=== PATIENT | female | born 1995 | race Hispanic/Latino ===

== ENCOUNTER 2018-10-26 14:59 | Observation (INO) | payer MEDICAID, OTHER ==
[~2018-10-26] VITALS: Ht 152.4 cm; Wt 73.9 kg
[2018-10-26 15:36] LABS: APPEARANCE,URINE CLOUDY (CLEAR); BILIRUBIN,URINE NEGATIVE (NEGATIVE); COLOR,URINE RED (YELLOW); GLUCOSE, URINE (UA) NEGATIVE (NEGATIVE); KETONES,URINE NEGATIVE (NEGATIVE); LEUKOCYTE ESTERASE ,URINE MODERATE (NEGATIVE); NITRATE,URINE NEGATIVE (NEGATIVE); OCCULT BLOOD,URINE LARGE (NEGATIVE); PH,URINE 5.5 (5.0-8.0); PROTEIN,URINE 30 mg/dL (NEGATIVE); UROBILINOGEN,URINE 0.2 mg/dL (0.2-1.0)
[2018-10-26 15:43] LABS: HCG,QUAL RESULT POSITIVE (NEGATIVE)
[2018-10-26 15:57] LABS: BACTERIA,URINE Few /HPF (None Seen); RBC,URINE Full Field /HPF (0-1)
[2018-10-26 16:10] LABS: BASOPHILS % (AUTO) 0.7 % (0.0-5.0); EOSINOPHILS % (AUTO) 5.4 % (0.0-8.0); HEMATOCRIT 35.1 % (36-48); LYMPHOCYTES % (AUTO) 26.7 % (21.0-51.0); MEAN CORPUSCULAR HGB CONC 33.9 g/dL (32.0-36.0); MEAN CORPUSCULAR VOLUME 85.6 fL (79-99); MONOCYTES % (AUTO) 5.3 % (3.0-13.0); NEUTROPHILS % (AUTO) 61.9 % (40.0-77.0); PLATELET COUNT (AUTO) 249 K/uL (130-400); RED CELL DISTRIBUTION WIDTH 15.1 % (11.0-15.5); WHITE BLOOD COUNT (AUTO) 10.9 K/uL (4.8-10.8)
[2018-10-26 16:20] LABS: CREATININE 0.5 mg/dL (0.5-1.5); POTASSIUM 3.5 mmol/L (3.5-5.1)
[2018-10-26] MEDS ORDERED: ONDANSETRON HCL 4 MG/2 ML VIAL IVP PRN (18:15)
[2018-10-26 19:45] VITALS: BP 121/70
[2018-10-26] MEDS: DEXTROSE 5%-LACTATED RINGERS 1,000 ML IV SCH (21:40)
[2018-10-26] MEDS: ACETAMINOPHEN EXTRA STRENGTH 500 MG TABLET PO PRN (22:36)
[2018-10-26 23:50] VITALS: BP 105/64
[2018-10-27 03:50] VITALS: BP 96/57
[2018-10-27] MEDS: DEXTROSE 5%-LACTATED RINGERS 1,000 ML IV SCH ×3 (04:51→23:18)
[2018-10-27 08:45] VITALS: BP 112/60
[2018-10-27 11:39] VITALS: BP 120/60
[2018-10-27] MEDS: ACETAMINOPHEN EXTRA STRENGTH 500 MG TABLET PO PRN (13:25)
[2018-10-27 16:14] VITALS: BP 93/63
[2018-10-27 19:23] VITALS: BP 102/62
[2018-10-27 23:12] VITALS: BP 93/58
[2018-10-28 04:06] VITALS: BP 101/59
[2018-10-28] MEDS: DEXTROSE 5%-LACTATED RINGERS 1,000 ML IV SCH (06:27)
[2018-10-28 07:42] VITALS: BP 101/52
--- NOTE | 2018-10-28 08:15 | NUR ---
PATIENT ASSESSED AND NO ACTIVE BLEEDING NOTED. PATIENT STATES HAVING SMALL BLEEDING WHEN GETTING UP TO VOID. STATES BLEEDING SINCE WEDNESDAY.
--- NOTE | 2018-10-28 11:00 | NUR ---
DISCHARGE INSTRUCTIONS GIVEN AND INSTRUCTED ON FOLLOW UP APPOINTMENT. VERBALIZED UNDERSTANDING INSTRUCTIONS GIVEN. PT TO TAKE ES TYLENOL NEEDED FOR PAIN AND INDICATED ON VIAL. PIV REMOVED AND SITE IS WITHIN NORMAL LIMITS.
[2018-10-28 11:16] VITALS: BP 111/63
--- NOTE | 2018-10-28 11:25 | NUR ---
TAKEN VIA W/C TO FAMILY VEHICLE AND WAS DISCHARGED IN STABLE CONDITION. PATIENT STABLE.
== END 2018-10-28 11:25 | disposition home or self-care (01) ==
LOC: EDH 14:59 → EDHIP 15:00 → INTOOBSV 15:00 → WSH 19:45
PROVIDERS: ADMIT Internal Medicine; ATTEND Internal Medicine
DX: O00.90 Unspecified ectopic pregnancy without intrauterine pregnancy (principal); Z79.899 Other long term (current) drug therapy; Z83.3 Family history of diabetes mellitus; Z82.49 Family history of ischemic heart disease and other diseases of the circulatory system
CPT/HCPCS: 36415 ×2; 76801; 76817; 80048; 81001; 81025; 84702 ×2; 85025; 86850; 86900; 86901; 86922; 99284; G0378 ×44

== ENCOUNTER 2020-06-12 05:54 | Inpatient (IN) | payer MEDICAID, OTHER ==
[~2020-06-12] VITALS: Ht 157.5 cm; Wt 98.0 kg
[2020-06-12] MEDS ORDERED: LACTATED RINGERS 1000ML 1,000 ML IV SCH ×2 (06:15→06:30)
[2020-06-12] MEDS ORDERED: CEFAZOLIN SODIUM 1 GM VIAL IVP PRN (06:30)
[2020-06-12] MEDS ORDERED: CALDOLOR 800MG+NS 250ML 250 ML IV PRN (06:30)
[2020-06-12 06:50] LABS: HEMATOCRIT 36.1 % (36-48); MEAN CORPUSCULAR HEMOGLOBIN 29.1 pg (27.0-33.0); MEAN CORPUSCULAR HGB CONC 32.7 g/dL (32.0-36.0); MEAN CORPUSCULAR VOLUME 88.9 fL (79-99); RED BLOOD CELL COUNT(AUTO) 4.06 MIL/uL (4.00-5.50); RED CELL DISTRIBUTION WIDTH 14.6 % (11.0-15.5); WHITE BLOOD COUNT (AUTO) 7.5 K/uL (4.8-10.8)
[2020-06-12 06:59] LABS: AMPHET/METH SCREEN,URINE NEGATIVE (NEGATIVE); BARBITURATE SCREEN, URINE NEGATIVE (NEGATIVE); BENZODIAZEPINES SCREEN,URINE NEGATIVE (NEGATIVE); CANNABINOID SCREEN,URINE NEGATIVE (NEGATIVE); COCAINE SCREEN,URINE NEGATIVE (NEGATIVE); OPIATE SCREEN,URINE NEGATIVE (NEGATIVE); PHENCYCLIDINE SCREEN,URINE NEGATIVE (NEGATIVE)
[2020-06-12 08:00] VITALS: BP 105/54
[2020-06-12] MEDS ORDERED: OXYTOCIN 10 UNIT/1ML 10ML VIAL ONE (08:59)
[2020-06-12] MEDS ORDERED: MORPHINE PF 100MG/10ML AMP IV ONE (08:59)
[2020-06-12] MEDS ORDERED: FENTANYL CITRATE PF 50 MCG/1 ML 2ML VIAL ONE (08:59)
[2020-06-12] MEDS ORDERED: ONDANSETRON 4MG INJ ONE (08:59)
[2020-06-12] MEDS ORDERED: PHENYLEPHRINE HCL 10 MG/ML 1ML VIAL IV ONE (09:01)
[2020-06-12 09:57] LABS: APPEARANCE,URINE Cloudy (CLEAR); BILIRUBIN,URINE Negative (NEGATIVE); COLOR,URINE Yellow (YELLOW); GLUCOSE, URINE (UA) Negative (NEGATIVE); KETONES,URINE 15 mg/dL (NEGATIVE); LEUKOCYTE ESTERASE ,URINE Small (NEGATIVE); NITRATE,URINE Negative (NEGATIVE); OCCULT BLOOD,URINE Negative (NEGATIVE); PROTEIN,URINE Negative (NEGATIVE)
[2020-06-12] MEDS ORDERED: CEFAZOLIN SODIUM 1 GM VIAL IVP ONE (10:00)
[2020-06-12 10:08] LABS: BACTERIA,URINE Few /HPF (None Seen)
[2020-06-12 10:09] LABS: RBC,URINE 0-1 /HPF (0-1)
[2020-06-12] MEDS ORDERED: 0.9%NACL 10ML VIAL IVP PRN (11:00)
[2020-06-12] MEDS ORDERED: OXYTOCIN-LR 20 UNITS/1000 ML 1,000 ML IV PRN (11:00)
[2020-06-12] MEDS ORDERED: OXYTOCIN-LR 20 UNITS/1000 ML 1,000 ML IV ONE (11:08)
[2020-06-12] MEDS ORDERED: OXYTOCIN-LR 20 UNITS/1000 ML 1,000 ML IV SCH (11:15)
[2020-06-12 12:57] LABS: RAPID PLASMA REAGIN NONREACTIVE (NONREACTIVE)
[2020-06-12] MEDS: MEPERIDINE-PF 75 MG/ML SYG IM PRN ×3 (13:19→21:54)
[2020-06-12] MEDS: PROMETHAZINE HCL 25 MG/ML 1ML AMPULE IM PRN ×3 (13:20→21:55)
[2020-06-12 13:30] VITALS: BP 106/63
[2020-06-12] MEDS ORDERED: PREN-196 PO (13:44)
[2020-06-12 16:41] VITALS: BP 120/85
[2020-06-12] MEDS: DEXTROSE 5 %-0.45 % NACL 1,000 ML IV PRN (17:31)
[2020-06-12] MEDS ORDERED: NALOXONE HCL 0.4 MG/1 ML ML IVP PRN ×2 (18:00)
[2020-06-12] MEDS ORDERED: ONDANSETRON 4MG INJ IVP PRN (18:00)
[2020-06-12] MEDS ORDERED: DiphenhydrAMINE HCL 50 MG/ML VIAL IVP PRN (18:00)
[2020-06-12 20:50] VITALS: BP 106/57
[2020-06-12 23:50] VITALS: BP 93/49
[2020-06-13] MEDS: DEXTROSE 5 %-0.45 % NACL 1,000 ML IV PRN ×2 (00:14→06:10)
[2020-06-13 03:45] VITALS: BP 90/54
[2020-06-13 06:47] LABS: HEMATOCRIT 32.4 % (36-48); MEAN CORPUSCULAR HEMOGLOBIN 29.2 pg (27.0-33.0); MEAN CORPUSCULAR HGB CONC 32.1 g/dL (32.0-36.0); RED BLOOD CELL COUNT(AUTO) 3.56 MIL/uL (4.00-5.50); RED CELL DISTRIBUTION WIDTH 14.6 % (11.0-15.5)
[2020-06-13] MEDS ORDERED: AMMONIA 1 EA AMP IH ONE (06:52)
[2020-06-13 07:34] VITALS: BP 114/63
[2020-06-13 08:14] LABS: HEPATITIS Bs ANTIGEN SCREEN P Negative (Negative)
[2020-06-13] MEDS ORDERED: SIMETHICONE 80 MG TAB.CHEW PO PRN (08:30)
[2020-06-13] MEDS ORDERED: IBUPROFEN 800 MG TAB PO SCH ×2 (08:30→11:00)
[2020-06-13] MEDS ORDERED: BISACODYL 10 MG SUPP.RECT RC PRN (08:30)
[2020-06-13] MEDS ORDERED: ACETAMINOPHEN 500 MG TABLET PO PRN (08:30)
[2020-06-13] MEDS ORDERED: ACETAMINOPHEN WITH CODEINE 1 TAB TAB PO PRN (08:30)
[2020-06-13] MEDS ORDERED: HYDROCODONE/ACETAMINOPHEN 5/325 MG TAB PO PRN (08:30)
[2020-06-13] MEDS ORDERED: DOCUSATE SODIUM 100 MG CAP PO SCH (09:00)
[2020-06-13 11:37] VITALS: BP 144/70
== END 2020-06-13 12:50 | disposition home or self-care (01) | DRG 788 ==
LOC: EDH 05:54 → OBSVTOIN 05:55 → LDH 05:55 → WSH 13:30
PROVIDERS: ADMIT Obstetrics & Gynecology; ATTEND Obstetrics & Gynecology
PROC: 10D00Z1 Extraction of Products of Conception, Low, Open Approach (ICD-10-PCS; principal; 2020-06-12 09:50)
DX: O34.211 Maternal care for low transverse scar from previous cesarean delivery (principal); O99.62 Diseases of the digestive system complicating childbirth; K21.9 Gastro-esophageal reflux disease without esophagitis; O99.214 Obesity complicating childbirth; E66.9 Obesity, unspecified; Z37.0 Single live birth; Z3A.39 39 weeks gestation of pregnancy
CPT/HCPCS: 36415; 59510; 80305; 81001; 85027; 86592; 86701; 86850; 86900; 86901; 87340; 87390; A4344; G0378; J0690; J1741; J2175; J2274; J2370; J2405; J2550; J2590; J3010; J3490; J7120

== ENCOUNTER 2024-01-03 10:56 | Emergency (ER) | payer BC, MEDICAID ==
[~2024-01-03] VITALS: Ht 149.9 cm; Wt 87.1 kg
[~2024-01-03 10:56] MED LIST: PREN-196 PO
[2024-01-03 10:57] VITALS: BP 127/66; PULSE 104; RESP 16
[2024-01-03 11:39] LABS: BASOPHILS # (AUTO) 0.05 K/uL (0.00-0.20); BASOPHILS % (AUTO) 0.5 % (0.0-5.0); EOSINOPHILS # (AUTO) 0.17 K/uL (0.00-0.70); EOSINOPHILS % (AUTO) 1.8 % (0.0-8.0); IMMATURE GRANULOCYTE ABSOLUTE 0.05 K/uL (0-1); LYMPHOCYTES # (AUTO) 2.6 K/uL (1.0-4.8); LYMPHOCYTES % (AUTO) 27.2 % (21.0-51.0); MEAN CORPUSCULAR HEMOGLOBIN 29.1 pg (27.0-33.0); MEAN CORPUSCULAR HGB CONC 33.1 g/dL (32.0-36.0); MONOCYTES # (AUTO) 0.5 K/uL (0.1-1.0); MONOCYTES % (AUTO) 5.3 % (3.0-13.0); NEUTROPHILS # (AUTO) 6.1 K/uL (1.8-7.7); NEUTROPHILS % (AUTO) 64.7 % (40.0-77.0); PLATELET COUNT (AUTO) 278 K/uL (130-400); RED BLOOD CELL COUNT(AUTO) 4.09 MIL/uL (4.00-5.50); RED CELL DISTRIBUTION WIDTH 12.9 % (11.0-15.5); WHITE BLOOD COUNT (AUTO) 9.4 K/uL (4.8-10.8)
[2024-01-03 11:42] LABS: CREATININE 0.5 mg/dL (0.5-1.0); POTASSIUM 3.4 mmol/L (3.5-5.1)
[2024-01-03 12:45] LABS: APPEARANCE,URINE CLEAR (CLEAR); BILIRUBIN,URINE NEGATIVE (NEGATIVE); COLOR,URINE LIGHT-YELLOW (YELLOW); GLUCOSE, URINE (UA) NEGATIVE (NEGATIVE); KETONES,URINE NEGATIVE (NEGATIVE); LEUKOCYTE ESTERASE ,URINE NEGATIVE Leu/uL (NEGATIVE); NITRATE,URINE NEGATIVE (NEGATIVE); OCCULT BLOOD,URINE SMALL (NEGATIVE); PH,URINE 6.5 (5.0-8.0); PROTEIN,URINE NEGATIVE (NEGATIVE); UROBILINOGEN,URINE 0.2 mg/dL (0.2-1.0)
[2024-01-03 12:50] LABS: ADD UA MICROSCOPIC YES
[2024-01-03 13:08] LABS: BACTERIA,URINE RARE /HPF (None Seen); MUCUS,URINE RARE LPF (None Seen); RBC,URINE 0-1 /HPF (0-1); SQUAMOUS EPITHELIAL CELL,UR RARE /HPF (0-2)
== END 2024-01-03 13:42 | disposition home or self-care (01) ==
LOC: EDH 10:56
DX: O20.0 Threatened abortion (principal); Z3A.10 10 weeks gestation of pregnancy
CPT/HCPCS: 36415; 76801; 80048; 81001; 84702; 85025